=== PATIENT | female | born 1950 | race Caucasian/White ===

== ENCOUNTER 2019-01-05 11:19 | Day surgery (SDC) | payer BC, OTHER ==
[~2019-01-05] VITALS: Ht 170.2 cm; Wt 86.0 kg
[~2019-01-05 11:19] MED LIST: LISI-471 PO
[2019-01-05] MEDS ORDERED: RED YEAST (11:49)
[2019-01-05 11:50] VITALS: BP 133/74; PULSE 85; RESP 16
[2019-01-05 12:03] VITALS: Ht 170.2 cm; Wt 86.0 kg
--- NOTE | 2019-01-05 12:23 | PREAC ---
Date/Time of Note Date/Time of Note DATE: 01/05/19 TIME: 12:22 Anesthesia Eval and Record Evaluation Time Pre-Procedure Interview DATE: 01/05/19 TIME: 12:22 Age 68 Sex female NPO: 8 hrs Preoperative diagnosis Colon Screening Planned procedure Colonoscopy Past Medical History Past Medical History: Includes Cardio: HTN Surgery & Anesthesia Issues No known issue Meds Anticoagulation: No Beta Philomena within 24 hr: No Reason Beta Philomena not given: Pt. not on B-Philomena Reported Medications [Red Yeast] No Conflict Check 01/05/19 Lisinopril* (Lisinopril*) 20 Mg Tablet, 20 MG PO DAILY 05/31/12 Discontinued Reported Medications [None] No Conflict Check 12/24/10 Meds reviewed: Yes Allergies Coded Allergies: No Known Drug Allergy (Verified Allergy, Unknown, 01/05/19) Allergies Reviewed: Yes Labs/Studies Labs Reviewed: Reviewed by anesthesiologist test: N/A Studies: ECG (n/a), CXR (n/a) Pre-procedure Exam Last vitals Vital Signs Date Temp Pulse Resp B/P (MAP) Pulse Ox O2 O2 Flow FiO2 Time Delivery Rate 01/05/19 97.4 85 16 133/74 97 Room Air 11:50 (93) Airway: Adequate mouth opening, Adequate thyromental dist Mallampati: Mallampati II Teeth: Normal Lung: Normal Heart: Normal ASA Physical Status ASA physical status: 2 Emergency: None Planned Anesthetic General/MAC: MAC Planned Pain Management Parenteral pain med Pre-operative Attestations Prior to commencing anesthesia and surgery, the patient was re-evaluated, there was verification of: *The patient's identity *The results of appropriate recent lab work and preoperative vital signs *The above evaluation not changing prior to induction *Anesthetic plan, risk benefits, alternative and complications discussed with patient/family; questions answered; patient/family understands, accepts and wishes to proceed. DIANA LOPEZ MD January 05, 2019 12:23
[2019-01-05] MEDS ORDERED: PROPOFOL 60 ML ONE (12:39)
--- NOTE | 2019-01-05 12:40 | PAC ---
Date/Time of Note Date/Time of Note DATE: 01/05/19 TIME: 12:39 Post-Anesthesia Notes Post-Anesthesia Note Last documented vital signs Vital Signs Date Temp Pulse Resp B/P (MAP) Pulse Ox O2 O2 Flow FiO2 Time Delivery Rate 01/05/19 97.4 85 16 133/74 97 Room Air 12:40 (93) Activity: WNL Respiratory function: WNL Cardiovascular function: WNL Mental status: Baseline Pain reasonably controlled: Yes Hydration appropriate: Yes Nausea/Vomiting absent: Yes DIANA LOPEZ MD January 05, 2019 12:40
== END 2019-01-05 15:00 | disposition home or self-care (01) ==
LOC: GIL 11:19
PROVIDERS: ATTEND Internal Medicine Gastroenterology
DX: Z12.11 Encounter for screening for malignant neoplasm of colon (principal); D12.3 Benign neoplasm of transverse colon; D12.8 Benign neoplasm of rectum; K57.30 Diverticulosis of large intestine without perforation or abscess without bleeding; I10 Essential (primary) hypertension
CPT/HCPCS: 88305